=== PATIENT | female | born 1990 | race Caucasian/White ===

== ENCOUNTER → 2017-06-26 08:55 | Outpatient (CLI) | payer OTHER | END | disposition home or self-care (01) | LOC: LAB 08:55 | DX: D69.49 Other primary thrombocytopenia (principal); D69.8 Other specified hemorrhagic conditions; D69.6 Thrombocytopenia, unspecified; D50.8 Other iron deficiency anemias; D51.8 Other vitamin B12 deficiency anemias; I10 Essential (primary) hypertension; D55.0 Anemia due to glucose-6-phosphate dehydrogenase [G6PD] deficiency; D51.1 Vitamin B12 deficiency anemia due to selective vitamin B12 malabsorption with proteinuria; D51.0 Vitamin B12 deficiency anemia due to intrinsic factor deficiency; E03.8 Other specified hypothyroidism; E04.2 Nontoxic multinodular goiter; B20 Human immunodeficiency virus [HIV] disease; B18.9 Chronic viral hepatitis, unspecified ==

== ENCOUNTER 2017-07-03 08:14 | Outpatient (CLI) | payer OTHER | END 2017-07-03 08:27 | disposition home or self-care (01) | LOC: SONOGRAMA 08:14 → MAMO-SONO 08:15 → SONOGRAMA 08:27 | DX: D69.49 Other primary thrombocytopenia (principal); D69.8 Other specified hemorrhagic conditions; D69.6 Thrombocytopenia, unspecified; E03.8 Other specified hypothyroidism; E04.2 Nontoxic multinodular goiter ==

== ENCOUNTER → 2017-08-23 16:49 | Outpatient (CLI) | payer OTHER | END | disposition home or self-care (01) | LOC: LAB 16:49 | DX: D69.6 Thrombocytopenia, unspecified (principal); D51.1 Vitamin B12 deficiency anemia due to selective vitamin B12 malabsorption with proteinuria; D51.0 Vitamin B12 deficiency anemia due to intrinsic factor deficiency; D69.8 Other specified hemorrhagic conditions; D68.0 Von Willebrand disease; D68.8 Other specified coagulation defects; E56.1 Deficiency of vitamin K ==